=== PATIENT | female | born 1960 | race Caucasian/White ===

== ENCOUNTER → 2023-09-15 08:43 | Outpatient (REF) | payer BC, SELFPAY | LOC: RAD 08:43 | PROVIDERS: ATTENDING PHYSICIAN Family Medicine | DX: R10.31 Right lower quadrant pain (principal); M54.50 Low back pain, unspecified | CPT/HCPCS: 74177; Q9967 ==

== ENCOUNTER → 2023-12-08 08:57 | Outpatient (REF) | payer BC, SELFPAY | LOC: RAD 08:57 | PROVIDERS: ATTENDING PHYSICIAN Family Medicine | DX: M79.671 Pain in right foot (principal) | CPT/HCPCS: 73630 ==

== ENCOUNTER → 2023-12-30 10:12 | Outpatient (REF) | payer BC, SELFPAY | LOC: RAD 10:12 | PROVIDERS: ATTENDING PHYSICIAN Obstetrics & Gynecology; FAMILY PHYSICIAN Family Medicine | DX: R10.31 Right lower quadrant pain (principal); R10.2 Pelvic and perineal pain | CPT/HCPCS: 36415; 76830; 76856 ==

== ENCOUNTER → 2024-01-20 19:51 | Outpatient (REF) | payer BC, SELFPAY | LOC: MRI 19:51 | PROVIDERS: ATTENDING PHYSICIAN Obstetrics & Gynecology; FAMILY PHYSICIAN Family Medicine | DX: R93.89 Abnormal findings on diagnostic imaging of other specified body structures (principal); Z80.49 Family history of malignant neoplasm of other genital organs | CPT/HCPCS: 72197; A9575 ==

== ENCOUNTER 2024-03-30 06:25 | Day surgery (SDC) | payer BC, SELFPAY ==
[2024-03-30] VITALS (8 sets, daily range): BP systolic 127–156; BP diastolic 74–96; BMI 31.7
--- NOTE | 2024-03-30 08:17 | W.IMMPOSTOP ---
Surgical Immed Post Op Note
-
Primary Surgeon: Courtney Menendez DO
Assisting Surgeon: none
Pre-op Diagnosis: Thickened endometrial lining on US, pelvic mass
Post-op Diagnosis: same; multiple endometrial polyps
Procedure Performed: Hysteroscopy D&C polypectomy
Anesthesia Type: general LMA Dr Chase
Specimen / Cultures: 1. ECC 2. Endometrial curettings and multiple polyps.
Estimated Blood Loss: 2ml
Fluid deficit: 115ml NSS
Complications: none
Operative Findings: Uterus sounded to 10cm; multiple (at least 3) polyps seen in endometrial cavity. Bilateral tubal ostia visualized. Normal appearing endocervical canal.
Stable to recovery.
== END 2024-03-30 09:35 | disposition home or self-care (01) ==
LOC: SDS 06:25
PROVIDERS: ATTENDING PHYSICIAN Obstetrics & Gynecology
DX: N84.0 Polyp of corpus uteri (principal); R93.89 Abnormal findings on diagnostic imaging of other specified body structures; D25.1 Intramural leiomyoma of uterus
CPT/HCPCS: 58558; 88305; 86850; 86900; 86901

== ENCOUNTER 2024-04-13 06:25 | Day surgery (SDC) | payer BC, SELFPAY ==
[2024-04-11 09:47] LABS: Blood Urea Nitrogen 17 mg/dl (7-17); Calcium 9.1 mg/dl (8.4-10.2); Carbon Dioxide 27 mmol/L (22-30); Chloride 104 mmol/L (98-107); Glucose 99 mg/dl (70-99); Potassium 4.6 mmol/L (3.5-5.1); Sodium 138 mmol/L (135-145); eGFR > 60.00
[2024-04-11 13:07] VITALS: BMI 30.2
[2024-04-11 14:31] LABS: % Basophils 1.3 % (0-2); % Eosinophils 2.7 % (0-6); % Immature Granulocytes 0.4 % (0-0.5); % Lymphocytes 43.3 % (20.5-51.1); % Monocytes 8.2 % (1.7-9.3); % Neutrophils 44.1 % (42.2-75.2); Absolute Basophils 0.1 10^3/uL (0-0.2); Absolute Eosinophils 0.1 10^3/uL (0-0.7); Absolute Lymphocytes 2.1 10^3/uL (1.2-3.4); Absolute Monocytes 0.4 10^3/uL (0.1-0.6); Absolute Neutrophils 2.1 10^3/uL (1.4-6.5); Hematocrit 38.7 % (37.0-47.0); Hemoglobin 12.6 g/dL (12.0-16.0); Mean Corp Hgb Conc. 32.6 g/dL (33.0-37.0); Mean Corpuscular Volume 92.1 fL (81.0-99.0); Mean Platelet Volume 9.4 fL (7.4-10.4); Nucleated Red Blood Cells % 0 %; Platelet Count 291 10^3/uL (130-400); Red Cell Dist. Width 12.4 % (11.5-14.5); White Blood Cell Count 4.8 10^3/uL (4.8-10.8)
[2024-04-13] VITALS (11 sets, daily range): BP systolic 119–160; BP diastolic 68–95; BMI 30.2; BMI 31.7
[2024-04-13] MEDS: HEPARIN 5000 UNITS SC (09:35)
[2024-04-13] MEDS: NEURONTIN 300 MG PO (09:35)
[2024-04-13] MEDS: TYLENOL 1000 MG PO (09:35)
[2024-04-13] MEDS: NORMOSOL-R/PLASMALYTE-A 1000 IV ×2 (09:36→18:13)
--- NOTE | 2024-04-13 11:35 | W.SUR.PREOP ---
Pre-Operative Surgical Note
-
I have examined this patient prior to the performance of the scheduled procedure.
The patient's condition is unchanged from the time of the current History and
Physical and the patient is able to undergo the scheduled procedure.
--- NOTE | 2024-04-13 15:46 | W.IMMPOSTOP ---
Addendum entered and electronically signed by Courtney Menendez DO 04/13/24 19:21:
Anesthesia: TAP block also.
Original Note:
Surgical Immed Post Op Note
-
Primary Surgeon: Courtney Menendez DO
Assisting Surgeon: AMERICA Guajardo
Intraop consult: Dr. Geoffrey Shaikh, gynecology oncology
Pre-op Diagnosis: Pelvic mass, fibroid uterus
Post-op Diagnosis: same, Right adnexal mass
Procedure Performed: robotic assisted total laparoscopic hysterectomy Bilateral salpingo-oopherectomy, pelvic washings, laparotomy for specimen extraction, lysis adhesions
Anesthesia Type: general ET Dr. Sharpe
Specimen / Cultures: 1. pelvic washings 2. Uterus, cervix left fallopian tube and left ovary 3. Right tube and and ovary (pelvic mass)
Estimated Blood Loss: 2oml
Complications: none
Operative Findings: Enlarged uterus with multiple fibroids approximately 10-12 wk size. Normal appearing left tube and ovary. Large 12 cm Right adnexal ovarian mass- appears solid and cystic.
Omentum, bowel and pelvic structures appear normal.
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 Final path pending
Counts correct times 2.
Stable to recovery.
[2024-04-13] MEDS: SUBLIMAZE 50 MCG IV ×2 (15:47→15:57)
--- NOTE | 2024-04-13 16:52 | W.PN.OBG.DWH ---
Today's Communication / Plan
-
OOB
Postop analgesia
diet as toelrated
monitor voids, I/Os
anticoagulation with lovenox.
Hoping for dc tomorrow
Operative findings reviewed
Assessment/Plan
-
Postop s/p RA TLH BSO with laparotomy for specimen extraction
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
Prior hx DVT
Operative findings reviewed with pt.
Continuing abx for 2 more doses Ancef due to attempted removal of bag containing right adnexa/adnexal mass through vagina but unable.
Anticipate possible dc home tomorrow if feeling ok.
RTO 2 wks.
Subjective Data
-
postop check- seen in PacU
Pt is awake and alert
Adequate pain control
Objective Data
-
Vital Signs
Temp Pulse Resp BP Pulse Ox
97.4 F 66 17 126/76 98
04/13/24 15:30 04/13/24 16:30 04/13/24 16:30 04/13/24 16:30 04/13/24 16:30
AAOX3
VSS afeb
heart: regular rate
abd: soft NDNT incisions CDI. Left abdomen with ecchymosis starting in region where TAP block was placed. (informed pt and RN)
no active vaginal bleeding
Ext: no calf pain, scds on
[2024-04-13 16:59] LABS: Hematocrit 37.3 % (37.0-47.0); Hemoglobin 12.4 g/dL (12.0-16.0)
[2024-04-13] MEDS: SUBLIMAZE 25 MCG IV (17:05)
[2024-04-13 17:12] LABS: Blood Urea Nitrogen 12 mg/dl (7-17); Calcium 8.1 mg/dl (8.4-10.2); Carbon Dioxide 23 mmol/L (22-30); Chloride 102 mmol/L (98-107); Estimated Creatinine Clearance 122 ml/min; Glucose 155 mg/dl (70-99); Potassium 3.6 mmol/L (3.5-5.1); Sodium 135 mmol/L (135-145); eGFR > 60.00
[2024-04-13] MEDS: LOVENOX 40 MG SC (18:09)
[2024-04-13] MEDS: TYLENOL 650 MG PO (20:03)
[2024-04-13] MEDS: COLACE 100 MG PO (20:04)
[2024-04-13] MEDS: ANCEF 5 IV (20:13)
[2024-04-14] VITALS: BP 129/70
--- NOTE | 2024-04-14 00:05 | PTCARENOTE ---
Dr Kumari notified d/t patient having distended bladder and felt like she was having bladder like spasm pains, pt was able to void a total of 500cc on her own but did not feel relief, Dr Kumari agreed with straight cath'ing pt at this time,
RN straight cathed for 550cc of blood tinged urine. Will try to void again in about 4 hrs unless patient feels the need to urinate sooner.
[2024-04-14] MEDS: TYLENOL 650 MG PO (01:38)
[2024-04-14] MEDS: ANCEF 5 IV (04:07)
[2024-04-14 04:13] VITALS: BP 150/75
[2024-04-14] MEDS: ROXICODONE 2.5 MG PO (04:27)
[2024-04-14 04:38] LABS: % Basophils 0.1 % (0-2); % Eosinophils 0.6 % (0-6); % Immature Granulocytes 0.3 % (0-0.5); % Lymphocytes 12.1 % (20.5-51.1); % Monocytes 7.6 % (1.7-9.3); % Neutrophils 79.3 % (42.2-75.2); Absolute Eosinophils 0.1 10^3/uL (0-0.7); Absolute Lymphocytes 1.1 10^3/uL (1.2-3.4); Absolute Monocytes 0.7 10^3/uL (0.1-0.6); Hemoglobin 11.9 g/dL (12.0-16.0); Mean Corp Hgb Conc. 33.1 g/dL (33.0-37.0); Mean Corpuscular Hgb 30.1 pg (27.0-31.0); Mean Corpuscular Volume 91.1 fL (81.0-99.0); Mean Platelet Volume 9.4 fL (7.4-10.4); Nucleated Red Blood Cells % 0 %; Platelet Count 281 10^3/uL (130-400); Red Blood Cell Count 3.95 10^6/uL (4.20-5.40); Red Cell Dist. Width 12.5 % (11.5-14.5); White Blood Cell Count 8.8 10^3/uL (4.8-10.8)
[2024-04-14 05:01] LABS: Blood Urea Nitrogen 9 mg/dl (7-17); Carbon Dioxide 28 mmol/L (22-30); Chloride 103 mmol/L (98-107); Estimated Creatinine Clearance 115 ml/min; Potassium 5.2 mmol/L (3.5-5.1); Sodium 137 mmol/L (135-145)
[2024-04-14] MEDS: NORMOSOL-R/PLASMALYTE-A 1000 IV (05:15)
--- NOTE | 2024-04-14 06:55 | PTCARENOTE ---
Dr Kumari notified at 0650 of potassium level increasing to 5.2 from previously being 3.6
[2024-04-14] MEDS: INSPRA 50 MG PO (07:53)
[2024-04-14] MEDS: COZAAR 50 MG PO (07:53)
[2024-04-14] MEDS: COLACE 100 MG PO ×2 (07:53→19:31)
[2024-04-14] MEDS: XANAX PO ×2 (07:53→07:58)
[2024-04-14] MEDS: ROXICODONE 5 MG PO ×3 (08:40→21:51)
[2024-04-14] MEDS: MORPHINE SULFATE 2 MG IV ×3 (09:50→17:46)
--- NOTE | 2024-04-14 10:10 | PTCARENOTE ---
Addendum entered by Veda Young RN 04/14/24 10:11:
Dr. Ritchie notified of potassium level at 0845. Fluids D/D'd at 0850
Original Note:
Dr. Ritchie aware of Potassium level. Orders to D/C fluids.
--- NOTE | 2024-04-14 10:56 | CM ---
CM reviewed chart, patient seen bedside. Patient resides with her in multiple story home, three steps to enter, full flight to bedroom/bathroom. Patient denies use of DME, VN, or SNF. Patient confirms PCP Dr. Rose, pharmacy [facility], confirms prescription coverage. Patient denies needs from CM upon discharge, reports her will be here shortly. CM will continue to follow for all discharge planning needs.
Plan; home with , no needs.
[2024-04-14 12:00] VITALS: BP 123/57
--- NOTE | 2024-04-14 14:19 | W.PN.OBG.DWH ---
Today's Communication / Plan
-
-advance diet to regular as tolerated
-d/c IVF
-encouraged OOB as tolerated
-advised she has IV morphine ordered so can use this on top of oral oxycodone as needed
-patient can stay o/n if needed for adequate pain management.
Assessment/Plan
-
63yo POD#1 s/p RATLH-BSO, mini lap for specimen removal
1. Post-op
-advance diet to regular as tolerated
-d/c IVF
-encouraged OOB as tolerated
-advised she has IV morphine ordered so can use this on top of oral oxycodone as needed
-final Path pending
-await bowel function
-mild elevation in K+- asymptomatic, no clinical concern
2. Continue home medications for HTN and Anxiety
3. h/o DVT- continue SCDs and Lovenox qPM
Subjective Data
-
Patient states pain is not well controlled, fine when she is lying down but when she moves she has a lot of pain. the oral oxycodone is not helping, She has not gotten any IV pain medication. Has been OOB to bathroom. Spots of blood when voided
initially. resolved now. No n/v/f/c. ordered a light breakfast. Does not feel ready for dc today. no flatus.
Objective Data
-
Laboratory Results
04/14/24 04:05
04/14/24 04:05
Vital Signs
Temp Pulse Resp BP Pulse Ox
98.0 F 73 18 123/57 98
04/14/24 12:00 04/14/24 12:00 04/14/24 12:00 04/14/24 12:00 04/14/24 04:13
Gen: nad well appearing
Abd; soft, nd, mild ttp.
Incision: c/d/i, bandage in place, no shadowing noted.
Ext: no LE ttp, SCDs in place
[2024-04-14 15:57] VITALS: BP 132/62
[2024-04-14] MEDS: LOVENOX 40 MG SC (17:46)
[2024-04-14 19:30] VITALS: BP 142/81
[2024-04-14 23:00] VITALS: BP 133/92
[2024-04-15] MEDS: TYLENOL 650 MG PO ×3 (02:41→12:52)
[2024-04-15 03:30] VITALS: BP 141/78
[2024-04-15] MEDS: COLACE 100 MG PO (07:50)
[2024-04-15] MEDS: INSPRA 50 MG PO (07:51)
[2024-04-15] MEDS: COZAAR 50 MG PO (07:55)
[2024-04-15 08:00] VITALS: BP 171/91
[2024-04-15] MEDS: ROXICODONE 5 MG PO ×2 (08:51→13:49)
--- NOTE | 2024-04-15 09:04 | PTCARENOTE ---
Dr Casiano in to see pt.aware of BP readings .
[2024-04-15 09:08] VITALS: BP 169/95
[2024-04-15] MEDS: MYLICON 80 MG PO (09:16)
[2024-04-15] MEDS: XANAX 1 MG PO (09:21)
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
[2024-04-15] MEDS: REGLAN 10 MG IV (09:39)
[2024-04-15 10:06] VITALS: BP 133/85
[2024-04-15 12:44] LABS: Blood Urea Nitrogen 9 mg/dl (7-17); Calcium 8.8 mg/dl (8.4-10.2); Carbon Dioxide 25 mmol/L (22-30); Chloride 103 mmol/L (98-107); Estimated Creatinine Clearance 115 ml/min; Glucose 104 mg/dl (70-99); Potassium 4.7 mmol/L (3.5-5.1); Sodium 136 mmol/L (135-145); eGFR > 60.00
[2024-04-15 12:48] VITALS: BP 153/100
--- NOTE | 2024-04-15 12:49 | PTCARENOTE ---
Getting ready for discharge to home. Instructions given . Has good understanding of discharge instructions and medications. last Bp 150/[address] Mcdaniel AWARE[address]
--- NOTE | 2024-04-15 13:57 | PTCARENOTE ---
here. discharged to home
== END 2024-04-15 14:05 | disposition home or self-care (01) ==
LOC: SDS 06:25
PROVIDERS: Obstetrics & Gynecology; ATTENDING PHYSICIAN Obstetrics & Gynecology; FAMILY PHYSICIAN Family Medicine; REFERRING PHYSICIAN Obstetrics & Gynecology Gynecologic Oncology
DX: D27.0 Benign neoplasm of right ovary (principal); N80.03 Adenomyosis of the uterus; N84.0 Polyp of corpus uteri; D25.2 Subserosal leiomyoma of uterus; D25.1 Intramural leiomyoma of uterus; N83.291 Other ovarian cyst, right side
CPT/HCPCS: 58571; 88305; 88307; 88332; 36415; 80048; 80051; 82565; 84520; 85014; 85018; 85025; 86850; 86900; 86901; 88112; 88331; 88341; 88342; 88360

== ENCOUNTER 2024-11-29 12:34 | Emergency (ER) | payer SELFPAY ==
[2024-11-29 12:38] VITALS: BP 159/110
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
[2024-11-29 14:32] VITALS: BP 154/75
== END 2024-11-29 14:58 | disposition home or self-care (01) ==
LOC: EMR 12:34
PROVIDERS: EMERGENCY PHYSICIAN Emergency Medicine; FAMILY PHYSICIAN Family Medicine
DX: M25.562 Pain in left knee (principal); M25.531 Pain in right wrist; S09.90XA Unspecified injury of head, initial encounter; S16.1XXA Strain of muscle, fascia and tendon at neck level, initial encounter; V43.52XA Car driver injured in collision with other type car in traffic accident, initial encounter; Y92.410 Unspecified street and highway as the place of occurrence of the external cause; I10 Essential (primary) hypertension; E78.00 Pure hypercholesterolemia, unspecified
CPT/HCPCS: 99282

== ENCOUNTER → 2025-03-02 09:57 | Outpatient (REF) | payer BC, SELFPAY | LOC: RCS 09:57 | PROVIDERS: ATTENDING PHYSICIAN Nurse Practitioner Family; FAMILY PHYSICIAN Family Medicine | DX: R06.02 Shortness of breath (principal) | CPT/HCPCS: 93306 ==